=== PATIENT | female | born 1990 | race American Indian/Alaskan Native ===

== ENCOUNTER 2020-07-24 16:08 | Emergency (ER) | payer BC, OTHER ==
[~2020-07-24] VITALS: Ht 152.4 cm; Wt 84.8 kg
[2020-07-24] MEDS ORDERED: KEFLEX500 MG PO (17:06)
== END 2020-07-24 17:20 | disposition home or self-care (01) ==
LOC: ED 16:08
DX: L02.01 Cutaneous abscess of face (principal)
CPT/HCPCS: 10060; 99282-25

== ENCOUNTER 2021-03-23 21:20 | Emergency (ER) | payer BC, OTHER ==
[~2021-03-23] VITALS: Ht 152.4 cm; Wt 85.3 kg
[~2021-03-23 21:20] MED LIST: KEFLEX500 MG PO
[2021-03-23] MEDS ORDERED: CEFPODOXIME PR200 MG PO (22:40)
== END 2021-03-23 23:48 | disposition home or self-care (01) ==
LOC: ED 21:20
DX: N12 Tubulo-interstitial nephritis, not specified as acute or chronic (principal)
CPT/HCPCS: 80053; 81001; 84703; 85025; 87088; 96365; 96375; 99284-25; J0696; J1885